=== PATIENT | male | born 1995 | race Hispanic/Latino ===

== ENCOUNTER 2018-06-04 08:26 | Emergency (ER) | payer OTHER, SELFPAY ==
[2018-06-04 08:39] VITALS: BP 142/84; PULSE 100; RESP 13; TEMP 36.8; O2SAT 98
--- NOTE | 2018-06-04 08:47 | ED.BACK ---
HPI - Back Pain/Injury General Chief Complaint: Back Pain/Injury Stated Complaint: BACK PAIN Time Seen by Provider: 06/04/18 08:35 Source: patient Mode of arrival: ambulatory Limitations: no limitations History of Present Illness HPI Narrative: Patient is a 23-year-old male lumbar thoracic back pain. He injured at work this morning. 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 He did not fall but had instant pain in his midthoracic back. He has some numbness tingling down his right leg. It is better at rest worse with movement. No changes in bowel or bladder habits. Never had any back problems in the past. MD Complaint: back pain and back injury Onset (ago): minute(s) Duration: constant Location: lumbar spine and thoracic spine Severity: moderate Related Data Previous Rx's Medication Instructions Recorded cyclobenzaprine 5 mg PO Q12H PRN #10 tab 06/04/18 Allergies Allergy/AdvReac Type Severity Reaction Status Date / Time No Known Drug Allergies Allergy Verified 06/04/18 08:52 Review of Systems Review of Systems All systems reviewed & are unremarkable except as noted in HPI and below Constitutional Denies chills, Denies fever(s), Denies lethargy and Denies weakness Cardiovascular Denies chest pain, Denies irregular heart rhythm, Denies lightheadedness, Denies palpitations, Denies dyspnea, Denies dyspnea on exertion and Denies orthopnea Respiratory Denies cough, Denies dyspnea, Denies dyspnea on exertion and Denies wheezing Gastrointestinal Gastrointestinal: Denies abdominal pain, Denies change in bowel habits, Denies diarrhea, Denies nausea and Denies vomiting Genitourinary Denies hematuria, Denies flank pain, Denies urinary incontinence and Denies urinary urgency Musculoskeletal Reports system reviewed and no additional complaints, except as docu and Reports as per HPI Integumentary/Breasts Denies pruritus, Denies erythema, Denies rash and Denies wounds Neurologic Reports paresthesias (right leg) and Denies weakness Endocrine Denies palpitations Allergic/Immunologic Denies wheezing [facility] Medical History Asthma (Acute) Social History Smoking Status: Never smoker Exam Initial Vital Signs Initial Vital Signs: Vital Signs Temperature 98.3 F 06/04/18 08:39 Pulse Rate 100 H 06/04/18 08:39 Respiratory Rate 13 06/04/18 08:39 Blood Pressure 142/84 H 06/04/18 08:39 Pulse Oximetry 98 06/04/18 08:39 Const General: cooperative and healthy appearing Nutritional Appearance: average body habitus Eyes General: appearance normal, both eyes and all related structures Chest Chest: normal inspection of the chest Resp Effort & Inspection: normal respiratory effort and able to speak in complete sentences Auscultation: clear to auscultation bilaterally, no rales, no rhonchi and no wheezes Cardio Rate: regular rate Rhythm: regular rhythm Heart Sounds: S1 normal and S2 normal Back/Spine/Pelvis Thoracic/Lumbar Spine: No surgical scar(s) present, No mass, paraspinal tenderness and thoraco-lumbar spasm Skin General: no rashes or lesions noted, No jaundice and No petechiae Neuro General: alert, oriented x3, gait normal and no focal motor deficits Speech: speech normal Extrem Right lower extremity: normal to inspection, full ROM and normal capillary refill Left lower extremity: normal to inspection, full ROM and normal capillary refill Course Orders Ordered: Discontinued Medications Ketorolac Tromethamine (Toradol) 60 mg IM NOW ONE Stop: 06/04/18 08:58 Last Admin: 06/04/18 09:03 Dose: 60 mg Vital Signs - 8 hr 06/04/18 08:39 Temperature 98.3 F Pulse Rate 100 H Respiratory Rate 13 Blood Pressure 142/84 H Pulse Oximetry 98 Discharge Plan Departure Patient Disposition: Home Clinical Impression: Thoracic back pain Discharge Date/Time: 06/04/18 09:41 Interventions: ED Discharge Assessment Last Done: 06/04/18 09:40 Instructions: Thoracic Back Pain Activity Restrictions/Additional Instructions: *You have been diagnosed with thoracic back pain *What to do: Light activity is encouraged no heavy lifting *Continue to take medications as directed Motrin 800 mg every 8 hr if needed for [id number] pain All Flexeril 1 tablet every 12 hr if needed for muscle spasm this does cause drowsiness do not take at work or while driving *Follow up with your primary care provider in 2-3 days-follow up with [facility] and [facility] physician or you may go to [facility] or walk-in clinic for full return back to work *Return to ER if you should have increasing weakness, loss of urine or stool or any new, worsening or concerning symptoms Prescriptions: New cyclobenzaprine 5 mg tablet 5 mg PO Q12H PRN (Reason: muscle spasm) Qty: 10 RF: 0 Referrals: [facility] [Outside] Stand Alone Forms: Work/School Restrictions
--- NOTE | 2018-06-04 08:50 | PC.NURSE ---
pt states he was stepping up at work when he tripped on the step causing him to stumble, but catching himself b4 he fell. states he felt a pain in his back at the time but was not too concerned. pain gradually getting worse, felt like he had to poop used the bathroom after that having difficulty walking due to pain.
--- NOTE | 2018-06-04 09:01 | ED_ITS ---
HPI - Back Pain/Injury General Chief Complaint: Back Pain/Injury Stated Complaint: BACK PAIN Time Seen by Provider: 06/04/18 08:35 Source: patient Mode of arrival: ambulatory Limitations: no limitations History of Present Illness HPI Narrative: Patient is a 23-year-old male lumbar thoracic back pain. He injured at work this morning. 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 He did not fall but had instant pain in his midthoracic back. He has some numbness tingling down his right leg. It is better at rest worse with movement. No changes in bowel or bladder habits. Never had any back problems in the past. MD Complaint: back pain and back injury Onset (ago): minute(s) Duration: constant Location: lumbar spine and thoracic spine Severity: moderate Related Data Previous Rx's Medication Instructions Recorded cyclobenzaprine 5 mg PO Q12H PRN #10 tab 06/04/18 Allergies Allergy/AdvReac Type Severity Reaction Status Date / Time No Known Drug Allergies Allergy Verified 06/04/18 08:52 Review of Systems Review of Systems All systems reviewed & are unremarkable except as noted in HPI and below Constitutional Denies chills, Denies fever(s), Denies lethargy and Denies weakness Cardiovascular Denies chest pain, Denies irregular heart rhythm, Denies lightheadedness, Denies palpitations, Denies dyspnea, Denies dyspnea on exertion and Denies orthopnea Respiratory Denies cough, Denies dyspnea, Denies dyspnea on exertion and Denies wheezing Gastrointestinal Gastrointestinal: Denies abdominal pain, Denies change in bowel habits, Denies diarrhea, Denies nausea and Denies vomiting Genitourinary Denies hematuria, Denies flank pain, Denies urinary incontinence and Denies urinary urgency Musculoskeletal Reports system reviewed and no additional complaints, except as docu and Reports as per HPI Integumentary/Breasts Denies pruritus, Denies erythema, Denies rash and Denies wounds Neurologic Reports paresthesias (right leg) and Denies weakness Endocrine Denies palpitations Allergic/Immunologic Denies wheezing [employer] Medical History Asthma (Acute) Social History Smoking Status: Never smoker Exam Initial Vital Signs Initial Vital Signs: Vital Signs Temperature 98.3 F 06/04/18 08:39 Pulse Rate 100 H 06/04/18 08:39 Respiratory Rate 13 06/04/18 08:39 Blood Pressure 142/84 H 06/04/18 08:39 Pulse Oximetry 98 06/04/18 08:39 Const General: cooperative and healthy appearing Nutritional Appearance: average body habitus Eyes General: appearance normal, both eyes and all related structures Chest Chest: normal inspection of the chest Resp Effort & Inspection: normal respiratory effort and able to speak in complete sentences Auscultation: clear to auscultation bilaterally, no rales, no rhonchi and no wheezes Cardio Rate: regular rate Rhythm: regular rhythm Heart Sounds: S1 normal and S2 normal Back/Spine/Pelvis Thoracic/Lumbar Spine: No surgical scar(s) present, No mass, paraspinal tenderness and thoraco-lumbar spasm Skin General: no rashes or lesions noted, No jaundice and No petechiae Neuro General: alert, oriented x3, gait normal and no focal motor deficits Speech: speech normal Extrem Right lower extremity: normal to inspection, full ROM and normal capillary refill Left lower extremity: normal to inspection, full ROM and normal capillary refill Course Orders Ordered: Discontinued Medications Ketorolac Tromethamine (Toradol) 60 mg IM NOW ONE Stop: 06/04/18 08:58 Last Admin: 06/04/18 09:03 Dose: 60 mg Vital Signs - 8 hr 06/04/18 08:39 Temperature 98.3 F Pulse Rate 100 H Respiratory Rate 13 Blood Pressure 142/84 H Pulse Oximetry 98 Discharge Plan Departure Patient Disposition: Home Clinical Impression: Thoracic back pain Discharge Date/Time: 06/04/18 09:41 Interventions: ED Discharge Assessment Last Done: 06/04/18 09:40 Instructions: Thoracic Back Pain Activity Restrictions/Additional Instructions: *You have been diagnosed with thoracic back pain *What to do: Light activity is encouraged no heavy lifting *Continue to take medications as directed Motrin 800 mg every 8 hr if needed for [id number] pain All Flexeril 1 tablet every 12 hr if needed for muscle spasm this does cause drowsiness do not take at work or while driving *Follow up with your primary care provider in 2-3 days-follow up with [facility] and [facility] physician or you may go to [facility] or walk-in clinic for full return back to work *Return to ER if you should have increasing weakness, loss of urine or stool or any new, worsening or concerning symptoms Prescriptions: New cyclobenzaprine 5 mg tablet 5 mg PO Q12H PRN (Reason: muscle spasm) Qty: 10 RF: 0 Referrals: [facility] [Outside] Stand Alone Forms: Work/School Restrictions
[2018-06-04] MEDS: KETOROLAC 60 MG/2 ML VIAL IM (09:03)
[2018-06-04 09:40] VITALS: BP 117/61; PULSE 88; RESP 15; O2SAT 99
== END 2018-06-04 09:41 | disposition home or self-care (01) ==
PROVIDERS: Emergency Provider Emergency Medicine
DX: M54.6 Pain in thoracic spine (principal); W18.40XA Slipping, tripping and stumbling without falling, unspecified, initial encounter; Y99.0 Civilian activity done for income or pay
CPT/HCPCS: 99282; 99283; J1885